=== PATIENT | female | born 1950 | race Caucasian/White ===

== ENCOUNTER → 2020-03-06 06:16 | Outpatient (CLI) | payer MEDICARE, SELFPAY ==
--- NOTE | 2020-03-06 | CA_ITS ---
APPROVED REPORT Exam: Exercise Treadmill Technologist: Madeline Guerrero, Ht: 5 ft 8 in Wt: 156 lbs BSA: 1.84 m2 HR: 79 bpm BP: 145/77 mmHg Rhythm: NSR,FREQUENT PAC'S,OCCASIONAL PVC,ST-T ABNORMALITIES INFERIORLY AND LATERALLY,NS IVCD Medical History Medical History: HTN Medications: FeNOfibrate,,,,, CarTIA,,,,, AtorvaASTATIN,,,,, Cardiac Risk Factors: FHX of CAD, HTN Stress Test Details Test: Eriberto HR Resting HR: 93 bpm Max Heart Rate (APMHR): 149 bpm Max HR Achieved: 136 bpm Target HR (85% APMHR): 126 bpm % of APMHR: 91 BP Resting BP: 145/77 mmHg Max BP: 148/68 mmHg Recovery BP: 114.0/62.0 mmHg ECG Medications Administered Labetalol ( mg at ) Clinical Exercise duration: 05:52 min Highest Stage Achieved: Exercise capacity: 7.0 METs Stress ECG Conclusion PATIENT EXERCISED 5:52 on ERIBERTO PROTOCOL. MAX HEART RATE 136 BPM WHICH IS 91% OF PM FOR AGE. MAX BP 148/68. METS = 7.0. TEST STOPPED DUE TO SOA AND FATIGUE. NO CHEST PAIN. RARE PAC,PVC. EXAGGERATION OF BASELINE ST-T ABNORMALITIES REACHING A MAXIMUM OF ABOUT 1.5MM DOWNSLOPING ST DEPRESSION INFERIORLY AND 1.5MM HORIZONTAL ST DEPRESSION LATERALLY. NON-DIAGNOSTIC GXT DUE TO BASELINE ABNORMALITIES. MYOVIEW IMAGES REPORTED SEPARATELY. Electronically signed by : Jose Guadalupe Veloz, 03/11/2020 12:56:26
--- NOTE | 2020-03-06 06:17 | NM_ITS ---
APPROVED REPORT Exam: Nuclear Stress Test Indication: CAD, SOA, HYPERLIPIDEMIA, PALPITATIONS, FM HX Patient Location: Outpatient Stress Tech: Lucille Guerrero NM Tech:Georgianalayne Valenzuela, ARRT, RT (R)(N) Ht: 5 ft 8 in Wt: 156 lbs Bra Size: 36C HR: 79 bpm BP: 145/77 mmHg BSA: 1.84 m2 BMI: 23.7 History: CAD, SOA, HYPERLIPIDEMIA, PALPITATIONS, FM HX Procedure: Patient exercised on Eriberto protocol 5:52 minutes and sec, resting heart rate 79 bpm, resting blood pressure 145/77 mmHg, with exercise maximum heart rate achived was 107 bpm which is 91 % of the maximum predicted heart rate and blood pressure was 114/62 mmHg. Patient denied any complaint of chest pain. Patient has exercise capacity, achieved 7 METs of workload on treadmill, the blood pressure response to exercise was . Cardiac Stress and Resting SPECT Images: Cardiac Stress and Resting SPECT images were obtained using technetium 99m Myoview 31.3 mCi stress and 10.56 mCi at rest. EF 55% Possible breast attenuation artifact anterior wall with questionable area of ischemia anteroseptal region Conclusion: EF lower limits of normal Possible breast attenuation artifact anterior wall Questionable area of ischemia anteroseptal region Electronically signed by : Jeff Rowe MD 03/08/2020 11:51:13
--- NOTE | 2020-03-06 07:01 | HMH.ITSHM ---
Current Home Medications as stated by this patient Flaca Segura or industrial relations representative. []FENOFIBRATE CARTIA ATORVASTATIN ASA
== END ==
PROVIDERS: PCP Family Medicine; Visit Provider Nurse Practitioner Family
DX: E78.5 Hyperlipidemia, unspecified (principal); I10 Essential (primary) hypertension; I25.10 Atherosclerotic heart disease of native coronary artery without angina pectoris; R00.2 Palpitations; R06.00 Dyspnea, unspecified; R53.83 Other fatigue
CPT/HCPCS: 78452; 93017; 93306; A9502

== ENCOUNTER 2020-03-21 07:52 | Day surgery (SDC) | payer MEDICARE, SELFPAY ==
[2020-03-21] VITALS (11 sets, daily range): BP systolic 89–145; BP diastolic 50–82; PULSE 50–70; RESP 16–20; TEMP 36.3; O2SAT 91–97; BMI 23.6
[2020-03-21 08:24] LABS: Basophils # 0.1 K/mm3 (0-0.2); Basophils % 1.1 % (0.1-2.0); Eosinophils # 0.3 K/mm3 (0.0-0.4); Eosinophils % 3.5 % (0.1-12.0); Hematocrit 41.4 % (37.0-47.0); Hemoglobin 13.9 g/dL (12.2-16.2); Lymphocytes # 4.6 K/mm3 (0.7-4.5); Mean Corpuscular HGB Conc 33.6 g/dL (31.8-35.4); Mean Corpuscular Hemoglobin 31.8 pg (27.0-31.2); Mean Corpuscular Volume 94.8 fl (81-99); Mean Platelet Volume 8.1 fl (7.4-10.4); Monocytes # 0.8 K/mm3 (0.1-1.0); Neutrophils # 3.6 K/mm3 (1.8-7.8); Neutrophils % 38.3 % (37.0-80.0); Platelet Count 373 K/mm3 (142-424); Red Blood Count 4.37 M/mm3 (4.20-5.40); Red Cell Distribution Width 13.6 % (11.5-17.5); White Blood Count 9.4 K/mm3 (4.8-10.8)
[2020-03-21 08:33] LABS: Anion Gap 14.6 mEq/L (5-15); Blood Urea Nitrogen 20 mg/dl (7-17); Calcium 9.5 mg/dl (8.4-10.2); Carbon Dioxide 24 mmol/L (22.0-30.0); Chloride 107 mmol/L (98-107); Creatinine Clearance Estimated 57 mL/min (50-200); Estimated Glomerular Filt Rate 62 ml/min (>60); GFR (African American) 75 ML/MIN (>60); Glucose 104 mg/dl (74-100); Potassium 3.6 mmoL/L (3.5-5.1); Sodium 142 mmol/L (136-145)
--- NOTE | 2020-03-21 13:00 | IR_ITS ---
APPROVED REPORT Patient Location: Outpatient Aluminum Siding Mechanic: EMMA Clark RT (R) PROCEDURES Left heart catheterization Left ventriculogram Selective coronary angiogram INDICATION I risk abnormal Myoview Informed consent was obtained prior to the procedure. COMPLICATIONS None Estimated Blood Loss: less than 10ml TECHNIQUE One percent lidocaine used to anesthetize the right anterior aspect of the wrist. The right radial artery was accessed via the Seldinger technique. A 6 Bangladeshi sheath was placed in the right radial artery. 2.5 mg of verapamil, 800 mcg of nitroglycerin, 1mg Lidocaine and 5000 U Heparin were given through the arterial sheath. The trap catheter was also used to perform left heart catheterization, left ventriculogram and selective coronary angiogram. At the end of the procedure the sheath was removed good hemostasis was achieved using Traclet band, patient was transferred to the postop holding area in stable condition. ANGIOGRAPHIC RESULTS The left main artery Normal The left anterior descending artery Has proximal mild luminal irregularities with remaining vessel normal The circumflex artery Large dominant normal The right coronary artery Small nondominant normal The FRANCOIS ventriculogram reveals Normal 60% The left ventricular end-diastolic pressure 10 mmHg IMPRESSION Nonocclusive coronary artery disease manifested only as mild luminal irregularities of the proximal LAD Normal ejection fraction Normal left ventricular end-diastolic pressure PLAN 1. Medical management Electronically signed by : Jose Guadalupe Veloz, 03/21/2020 09:02:51
== END 2020-03-21 11:49 | disposition home or self-care (01) ==
LOC: CATHLAB 07:54
PROVIDERS: PCP Family Medicine; Visit Provider Internal Medicine
DX: E78.2 Mixed hyperlipidemia (principal); I10 Essential (primary) hypertension; I25.118 Atherosclerotic heart disease of native coronary artery with other forms of angina pectoris; R06.02 Shortness of breath; R53.83 Other fatigue; R93.1 Abnormal findings on diagnostic imaging of heart and coronary circulation; R94.31 Abnormal electrocardiogram [ECG] [EKG]; R94.39 Abnormal result of other cardiovascular function study
CPT/HCPCS: 80048; 85025; 93458; 99152; C1725; C1769; J1644; J2405; Q9967

== ENCOUNTER → 2020-04-02 15:17 | Outpatient (CLI) | payer MEDICARE, SELFPAY ==
[2020-04-02 19:09] LABS: Alanine Aminotransferase 19 U/L (12-78); Albumin Level 4.5 g/dl (3.5-5.0); Alkaline Phosphatase 71 U/L (38-126); Aspartate Amino Transferase 36 U/L (14-36); Bilirubin,Direct 0.2 mg/dl (0.0-0.4); Bilirubin,Indirect 0.2 mg/dL (0.0-0.9); Bilirubin,Total 0.4 mg/dl (0.2-1.3); Bilirubin,Unconjugated 0.2 mg/dL (0.0-1.1); Cholesterol 159 mg/dl (140-200); HDL Cholesterol 53 mg/dl (40-60); Total Protein,Serum 7.7 g/dl (6.3-8.2); Triglycerides 274 mg/dl (30-150); VLDL Cholesterol 55 mg/dL (0-40)
[2020-04-02 19:21] LABS: Direct LDL Cholesterol 67.81 mg/dL (100-129)
== END ==
PROVIDERS: Visit Provider Urology
DX: E78.5 Hyperlipidemia, unspecified (principal); I10 Essential (primary) hypertension; I25.10 Atherosclerotic heart disease of native coronary artery without angina pectoris
CPT/HCPCS: 36415; 80061; 80076

== ENCOUNTER → 2020-06-24 16:28 | Outpatient (CLI) | payer MEDICARE, SELFPAY ==
--- NOTE | 2020-06-24 16:36 | XR_ITS ---
PROCEDURE: XR CERVICAL SPINE 2V CLINICAL INDICATION: fall Posttraumatic pain COMPARISON: No exams were available for comparison FINDINGS: Normal alignment. No fracture or dislocation. Degenerative disc disease C5-C6 and C6-C7. There is 2 mm anterolisthesis C7 on T1 which may be degenerative in nature. Other findings:None. IMPRESSION: Degenerative changes, no acute finding Dictated by: Jeff Rowe MD 06/24/2020 19:43 Jeff Rowe MD in [place] 06/24/2020 19:43
--- NOTE | 2020-06-24 16:36 | XR_ITS ---
PROCEDURE: XR LUMBAR SPINE 2-3V CLINICAL INDICATION: pain COMPARISON: No exams were available for comparison FINDINGS: No fracture or dislocation. No lytic or blastic change. There is normal mineralization. There is mild lumbar curvature convex left. Degenerative disc disease is present from L1-S1 mild in nature. There is straightening of the lumbar lordosis which could be due to patient positioning or muscle spasm. On the lateral view there is an oval ring-like density overlying the pedicle of L1 possibly due to an overlying foreign body or vascular calcification. Other findings:None. IMPRESSION: Degenerative changes, no acute finding Dictated by: Jeff Rowe MD 06/24/2020 19:42 Jeff Rowe MD in OV 06/24/2020 19:42
--- NOTE | 2020-06-24 16:43 | XR_ITS ---
PROCEDURE: XR HIP RT 2-3V W/PELVIS CLINICAL INDICATION: PAIN COMPARISON: No exams were available for comparison FINDINGS: No fracture or dislocation is evident. No significant degenerative change. No lytic or blastic change. Unremarkable soft tissues. IMPRESSION: No acute findings. Dictated by: Jeff Rowe MD 06/24/2020 19:40 Jeff Rowe MD in OV 06/24/2020 19:40
--- NOTE | 2020-06-24 16:44 | XR_ITS ---
PROCEDURE: XR HIP LT 2-3V W/PELVIS CLINICAL INDICATION: PAIN COMPARISON: No exams were available for comparison FINDINGS: No fracture or dislocation is evident. No significant degenerative change. No lytic or blastic change. Unremarkable soft tissues. IMPRESSION: No acute findings. Dictated by: Jeff Rowe MD 06/24/2020 19:40 Jeff Rowe MD in OV 06/24/2020 19:40
== END ==
PROVIDERS: PCP Family Medicine; Visit Provider Family Medicine
DX: W19.XXXA Unspecified fall, initial encounter (principal); M54.41 Lumbago with sciatica, right side
CPT/HCPCS: 72040; 72100; 73502

== ENCOUNTER → 2021-01-14 13:38 | Outpatient (CLI) | payer MEDICARE, SELFPAY ==
[2021-01-14 13:56] LABS: Basophils # 0.1 K/mm3 (0-0.2); Basophils % 1.5 % (0.1-2.0); Eosinophils # 0.1 K/mm3 (0.0-0.4); Eosinophils % 1.2 % (0.1-12.0); Hematocrit 41.5 % (37.0-47.0); Hemoglobin 13.4 g/dL (12.2-16.2); Lymphocytes # 3.1 K/mm3 (0.7-4.5); Lymphocytes % 38.7 % (10-50); Mean Corpuscular HGB Conc 32.3 g/dL (31.8-35.4); Mean Corpuscular Hemoglobin 30.6 pg (27.0-31.2); Mean Corpuscular Volume 94.7 fl (81-99); Mean Platelet Volume 8.5 fl (7.4-10.4); Monocytes # 0.8 K/mm3 (0.1-1.0); Monocytes % 9.4 % (1.7-9.3); Neutrophils % 49.2 % (37.0-80.0); Platelet Count 435 K/mm3 (142-424); Red Blood Count 4.38 M/mm3 (4.20-5.40); Red Cell Distribution Width 13.9 % (11.5-17.5); White Blood Count 8.1 K/mm3 (4.8-10.8)
[2021-01-14 14:00] LABS: Alanine Aminotransferase 20 U/L (12-78); Albumin Level 4.6 g/dl (3.5-5.0); Albumin/Globulin Ratio 1.5 (1.1-1.8); Alkaline Phosphatase 61 U/L (38-126); Anion Gap 11.5 mEq/L (5-15); Aspartate Amino Transferase 33 U/L (14-36); Bilirubin,Total 0.5 mg/dl (0.2-1.3); Blood Urea Nitrogen 20 mg/dl (7-17); Calcium 9.8 mg/dl (8.4-10.2); Carbon Dioxide 24 mmol/L (22.0-30.0); Chloride 109 mmol/L (98-107); Estimated Glomerular Filt Rate 55 ml/min (>60); GFR (African American) 66 ML/MIN (>60); Glucose 101 mg/dl (74-100); Potassium 4.5 mmoL/L (3.5-5.1); Sodium 140 mmol/L (136-145); Total Protein,Serum 7.6 g/dl (6.3-8.2)
[2021-01-14 14:18] LABS: 25-OH Vitamin D, Total 23.7 ng/mL (30-100)
[2021-01-14 14:33] LABS: Thyroid Stimulating Hormone 1.59 uIU/mL (0.465-4.68)
[2021-01-14 14:51] LABS: Vitamin B12 332 pg/mL (239-931)
== END ==
PROVIDERS: Visit Provider Family Medicine
DX: R06.00 Dyspnea, unspecified (principal); R53.83 Other fatigue; E55.9 Vitamin D deficiency, unspecified
CPT/HCPCS: 80053; 82306; 82607; 84436; 84443; 85025

== ENCOUNTER → 2021-04-02 14:31 | Outpatient (CLI) | payer MEDICARE, SELFPAY ==
[2021-04-02 14:54] LABS: Basophils # 0.1 K/mm3 (0-0.2); Eosinophils # 0.2 K/mm3 (0.0-0.4); Eosinophils % 1.5 % (0.1-12.0); Hemoglobin 13.3 g/dL (12.2-16.2); Lymphocytes % 26.6 % (10-50); Mean Corpuscular HGB Conc 33.4 g/dL (31.8-35.4); Mean Corpuscular Hemoglobin 30.4 pg (27.0-31.2); Mean Platelet Volume 7.8 fl (7.4-10.4); Monocytes # 0.8 K/mm3 (0.1-1.0); Monocytes % 7.4 % (1.7-9.3); Neutrophils # 7.1 K/mm3 (1.8-7.8); Neutrophils % 63.5 % (37.0-80.0); Platelet Count 393 K/mm3 (142-424); Red Blood Count 4.39 M/mm3 (4.20-5.40); Red Cell Distribution Width 13.5 % (11.5-17.5); White Blood Count 11.2 K/mm3 (4.8-10.8)
[2021-04-02 15:14] LABS: Alanine Aminotransferase 22 U/L (12-78); Albumin Level 4.5 g/dl (3.5-5.0); Alkaline Phosphatase 64 U/L (38-126); Aspartate Amino Transferase 37 U/L (14-36); Bilirubin,Direct 0.6 mg/dl (0.0-0.4); Bilirubin,Indirect 0.1 mg/dL (0.0-0.9); Bilirubin,Total 0.7 mg/dl (0.2-1.3); Bilirubin,Unconjugated 0.1 mg/dL (0.0-1.1); Blood Urea Nitrogen 20 mg/dl (7-17); Calcium 9.3 mg/dl (8.4-10.2); Carbon Dioxide 22 mmol/L (22.0-30.0); Chloride 106 mmol/L (98-107); Chol/HDL Ratio 3.2 (1-3.5); Cholesterol 152 mg/dl (140-200); Estimated Glomerular Filt Rate 62 ml/min (>60); GFR (African American) 74 ML/MIN (>60); Glucose 93 mg/dl (74-100); HDL Cholesterol 48 mg/dl (40-60); Sodium 137 mmol/L (136-145); Total Protein,Serum 7.6 g/dl (6.3-8.2); Triglycerides 150 mg/dl (30-150); VLDL Cholesterol 30 mg/dL (0-40)
[2021-04-02 15:25] LABS: Direct LDL Cholesterol 68.05 mg/dL (100-129)
== END ==
PROVIDERS: Visit Provider Physician Assistant
DX: E78.2 Mixed hyperlipidemia (principal); I10 Essential (primary) hypertension; I25.10 Atherosclerotic heart disease of native coronary artery without angina pectoris
CPT/HCPCS: 36415; 80048; 80061; 80076; 83735; 85025

== ENCOUNTER → 2021-07-08 18:22 | Outpatient (CLI) | payer MEDICARE, SELFPAY | PROVIDERS: Visit Provider Family Medicine | DX: Z20.822 Contact with and (suspected) exposure to COVID-19 (principal) | CPT/HCPCS: C9803; U0003; U0005 ==

== ENCOUNTER → 2022-01-05 18:10 | Outpatient (CLI) | payer MEDICARE, SELFPAY | PROVIDERS: Visit Provider Family Medicine | DX: N39.0 Urinary tract infection, site not specified (principal); B96.20 Unspecified Escherichia coli [E. coli] as the cause of diseases classified elsewhere | CPT/HCPCS: 87086; 87186 ==

== ENCOUNTER → 2022-06-15 14:14 | Outpatient (CLI) | payer MEDICARE, SELFPAY | PROVIDERS: PCP Student in an Organized Health Care Education/Training Program; Visit Provider Student in an Organized Health Care Education/Training Program | DX: R82.90 Unspecified abnormal findings in urine (principal); B96.89 Other specified bacterial agents as the cause of diseases classified elsewhere | CPT/HCPCS: 87086; 87088; 87186 ==

== ENCOUNTER → 2022-10-16 14:37 | Outpatient (CLI) | payer MEDICARE, SELFPAY ==
[2022-10-16 15:05] LABS: Basophils # 0.1 K/mm3 (0-0.2); Basophils % 1.3 % (0.1-2.0); Eosinophils # 0.2 K/mm3 (0.0-0.4); Eosinophils % 2.3 % (0.1-12.0); Hematocrit 43.4 % (37.0-47.0); Hemoglobin 13.9 g/dL (12.2-16.2); Lymphocytes # 3.2 K/mm3 (0.7-4.5); Mean Corpuscular Hemoglobin 29.6 pg (27.0-31.2); Mean Corpuscular Volume 92.4 fl (81-99); Monocytes # 0.7 K/mm3 (0.1-1.0); Monocytes % 9.8 % (1.7-9.3); Neutrophils # 3.3 K/mm3 (1.8-7.8); Neutrophils % 43.5 % (37.0-80.0); Platelet Count 512 K/mm3 (142-424); Red Cell Distribution Width 13.3 % (11.5-17.5); White Blood Count 7.5 K/mm3 (4.8-10.8)
[2022-10-16 16:16] LABS: Alanine Aminotransferase 23 U/L (12-78); Albumin Level 4.6 g/dl (3.5-5.0); Albumin/Globulin Ratio 1.5 (1.1-1.8); Alkaline Phosphatase 60 U/L (38-126); Anion Gap 12.4 mEq/L (5-15); Aspartate Amino Transferase 38 U/L (14-36); Bilirubin,Total 0.5 mg/dl (0.2-1.3); Blood Urea Nitrogen 22 mg/dl (7-17); Calcium 9.2 mg/dl (8.4-10.2); Carbon Dioxide 24 mmol/L (22.0-30.0); Chloride 107 mmol/L (98-107); Chol/HDL Ratio 3.3 (1-3.5); Cholesterol 150 mg/dl (140-200); Estimated Glomerular Filt Rate 61 ml/min (>60); GFR (African American) 74 ML/MIN (>60); Globulin 3.1 g/dL (1.3-3.2); Glucose 118 mg/dl (74-100); HDL Cholesterol 45 mg/dl (40-60); Potassium 4.4 mmoL/L (3.5-5.1); Sodium 139 mmol/L (136-145); Total Protein,Serum 7.7 g/dl (6.3-8.2); Triglycerides 165 mg/dl (30-150); VLDL Cholesterol 33 mg/dL (0-40)
[2022-10-16 16:28] LABS: Direct LDL Cholesterol 72.21 mg/dL (100-129)
[2022-10-16 16:47] LABS: Thyroid Stimulating Hormone 3.06 uIU/mL (0.465-4.68)
== END ==
PROVIDERS: PCP Family Medicine; Visit Provider Family Medicine
DX: Z00.00 Encounter for general adult medical examination without abnormal findings (principal); I25.10 Atherosclerotic heart disease of native coronary artery without angina pectoris; I10 Essential (primary) hypertension; N39.0 Urinary tract infection, site not specified; B96.29 Other Escherichia coli [E. coli] as the cause of diseases classified elsewhere
CPT/HCPCS: 80053; 80061; 84443; 85025; 87086; 87088; 87186

== ENCOUNTER → 2023-03-19 11:00 | Outpatient (CLI) | payer MEDICARE, SELFPAY | PROVIDERS: PCP Family Medicine; Visit Provider Family Medicine | DX: R35.0 Frequency of micturition (principal); B96.1 Klebsiella pneumoniae [K. pneumoniae] as the cause of diseases classified elsewhere | CPT/HCPCS: 87086; 87088; 87186 ==

== ENCOUNTER → 2023-05-12 08:04 | Outpatient (CLI) | payer MEDICARE, SELFPAY ==
--- NOTE | 2023-05-12 08:06 | CA_ITS ---
APPROVED REPORT EXAM: Comprehensive 2D, Doppler, and color-flow Echocardiogram Music Critic: Marta Nichols, RCS, RVS Ht: 5 ft 6 in Wt: 151lbs BSA: 1.77 BP: 121/74 mmHg Indications: SOA, MURMURS, CAD, HTN, HLD 2D Dimensions LVDd 5.10 cm LVEF (Visual) 50.20 % LVDs 3.79 cm LA Volume 69.50 mL Aortic Root 3.49 cm LA Volume Index 38.20 mL/m2 (M/F) 16-34 Left Atrium 4.06 cm LVOT 2.20 cm (M/F) 1.5-2.5 M-Mode Dimensions RVDd 2.50 cm (0.9-2.6) LA Diam 4.12 cm (1.9-4.0) LVDd 5.10 cm (3.5-5.7) Ao Diam 3.62 cm (2.0-3.7) LVDs 3.80 cm (3.5-5.7) IVSd 1.02 cm (0.6-1.1) PWd 0.68 cm (0.6-1.1) EF (Teich) 58.50% EPSs 0.88 cm FS 31.40% EDV (Teich) 174.60 mL TAPSE 2.83 (<1.7) ESV (Teich) 72.50 mL LV Diastology E Decel Time 287.00 (160-240 msec) E/A Ratio 0.51 MED E' 5.30 (< 7 cm/sec) MED A' 11.10 cm/s E'/MED E' Ratio 10.38 (>14) LAT E' 6.80 (<10 cm/sec) LAT A' 11.00 cm/s E/LAT E' Ratio 8.09 (>14) Aortic Valve LVOT Max 85.00 (70-110 cm/s) LVOT VTI 18.73 cm AoV Peak Pérez. 131.00 (50-130 cm/s) AI PHT 563.00 ms AO Peak GR. 6.90 mmHg AO Mean GR. 3.40 (<5 mmHg) AO VTI 28.11 (18-25 cm) EMMA (VTI) 2.53 (2.5-4.5 cm2) Mitral Valve MV A Velocity 109.00 (40-130 cm/s) E/A Ratio 0.51 MV Decel. Time 287.00 (160-240 ms) MV Mean Gr. 1.40 (<2mmHg) MV PHT 48.00 ms Pulmonary Valve PV Peak Velocity 63.00 (50-150 cm/s) Tricuspid Valve TR P. Velocity 263.00 cm/s RAP Estimate 10.00 mmHg RVSP 37.60 mmHg Left Ventricle The left ventricle is normal size. The left ventricular systolic function is normal. The left ventricular ejection fraction is within the normal range. There is normal left ventricular wall thickness. There is normal LV segmental wall motion. The left ventricular diastolic function is normal. LVEF is 55%. Right Ventricle The right ventricle is normal size. The right ventricular systolic function is normal. Atria The left atrium size is normal. The right atrium size is normal. There is no Doppler evidence of interatrial shunt. Aortic Valve The aortic valve is normal in structure. There is no aortic valvular stenosis. Trace aortic regurgitation. Mitral Valve The mitral valve is normal in structure. No evidence of mitral valve stenosis. Mild mitral regurgitation. Tricuspid Valve The tricuspid valve leaflets are thin and pliable. Mild tricuspid regurgitation. RVSP is 27 mmHg + RA pressure. Pulmonic Valve The pulmonary valve is normal in structure. Mild pulmonic regurgitation. Great Vessels The aortic root is normal in size. The ascending aorta is borderline dilated. The ascending aorta measures 3.7 cm. The IVC is not well visualized. Pericardium There is no pericardial effusion. Other Information Study Quality: Fair Conclusion Normal biventricular systolic function. No significant valvular disease. Mild MR, Mild TR, Mild WI Trace AI Borderline dilated ascending aorta 3.7 cm. Electronically signed by : Kristen Paredes, 05/17/2023 17:20:34
== END ==
PROVIDERS: PCP Family Medicine; Visit Provider Internal Medicine
DX: E78.5 Hyperlipidemia, unspecified (principal); I10 Essential (primary) hypertension; I25.10 Atherosclerotic heart disease of native coronary artery without angina pectoris; R00.2 Palpitations
CPT/HCPCS: 93306

== ENCOUNTER → 2023-08-17 11:08 | Outpatient (POV) | payer MEDICARE, SELFPAY | PROVIDERS: PCP Family Medicine; Visit Provider Dermatology | DX: Z00.00 Encounter for general adult medical examination without abnormal findings (principal) ==

== ENCOUNTER → 2023-08-18 07:32 | Outpatient (CLI) | payer MEDICARE, SELFPAY | PROVIDERS: PCP Nurse Practitioner; Visit Provider Nurse Practitioner | DX: N39.0 Urinary tract infection, site not specified (principal) | CPT/HCPCS: 87086 ==

== ENCOUNTER 2023-11-09 11:28 | Outpatient (CLI) | payer MEDICARE, SELFPAY ==
[2023-11-09 11:52] LABS: Basophils # 0.2 K/mm3 (0-0.2); Basophils % 1.3 % (0.1-2.0); Eosinophils # 0.3 K/mm3 (0.0-0.4); Eosinophils % 2.5 % (0.1-12.0); Hematocrit 44.5 % (37.0-47.0); Hemoglobin 14.3 g/dL (12.2-16.2); Lymphocytes # 4.6 K/mm3 (0.7-4.5); Lymphocytes % 35.9 % (10-50); Mean Corpuscular HGB Conc 32.1 g/dL (31.8-35.4); Mean Corpuscular Hemoglobin 30.6 pg (27.0-31.2); Mean Corpuscular Volume 95.4 fl (81-99); Mean Platelet Volume 7.8 fl (7.4-10.4); Monocytes % 7.8 % (1.7-9.3); Neutrophils # 6.7 K/mm3 (1.8-7.8); Neutrophils % 52.6 % (37.0-80.0); Platelet Count 483 K/mm3 (142-424); Red Blood Count 4.66 M/mm3 (4.20-5.40); White Blood Count 12.8 K/mm3 (4.8-10.8)
[2023-11-09 12:26] LABS: Alanine Aminotransferase 25 U/L (12-78); Albumin Level 4.3 g/dl (3.5-5.0); Alkaline Phosphatase 66 U/L (38-126); Anion Gap 13.4 mEq/L (5-15); Aspartate Amino Transferase 33 U/L (14-36); Bilirubin,Direct 0.2 mg/dl (0.0-0.4); Bilirubin,Indirect 0.3 mg/dL (0.0-0.9); Bilirubin,Total 0.5 mg/dl (0.2-1.3); Bilirubin,Unconjugated 0.4 mg/dL (0.0-1.1); Blood Urea Nitrogen 21 mg/dl (7-17); Calcium 9.5 mg/dl (8.4-10.2); Carbon Dioxide 26 mmol/L (22.0-30.0); Chloride 104 mmol/L (98-107); Chol/HDL Ratio 3.7 (1-3.5); Cholesterol 155 mg/dl (140-200); Estimated Glomerular Filt Rate 61 ml/min (>60); GFR (African American) 74 ML/MIN (>60); Glucose 89 mg/dl (74-100); HDL Cholesterol 42 mg/dl (40-60); Magnesium 2.2 mg/dl (1.6-2.3); Potassium 4.4 mmoL/L (3.5-5.1); Sodium 139 mmol/L (136-145); Total Protein,Serum 7.3 g/dl (6.3-8.2); Triglycerides 211 mg/dl (30-150); VLDL Cholesterol 42 mg/dL (0-40)
[2023-11-09 12:37] LABS: Direct LDL Cholesterol 69.36 mg/dL (100-129)
[2023-11-09 12:45] LABS: Free T4 (Free Thyroxine) 1.26 ng/dl (0.78-2.19)
[2023-11-09 12:57] LABS: Thyroid Stimulating Hormone 2.03 uIU/mL (0.465-4.68)
== END 2023-11-09 23:59 ==
LOC: LAB 11:29
PROVIDERS: PCP Family Medicine; Visit Provider Nurse Practitioner
DX: E78.5 Hyperlipidemia, unspecified (principal); I10 Essential (primary) hypertension; I25.10 Atherosclerotic heart disease of native coronary artery without angina pectoris; I77.810 Thoracic aortic ectasia; R00.2 Palpitations; Z79.899 Other long term (current) drug therapy
CPT/HCPCS: 36415; 80048; 80061; 80076; 83735; 84439; 84443; 85025

== ENCOUNTER 2024-10-24 09:31 | Outpatient (CLI) | payer MEDICARE, SELFPAY ==
--- NOTE | 2024-10-24 09:37 | CA_ITS ---
FINAL REPORT CLINICAL HISTORY: Right leg pain previous SVT 10 years ago. FINDINGS: DUPLEX VENOUS SONOGRAPHY OF THE RIGHT LOWER EXTREMITY Multiple transverse and longitudinal scans were performed of the femoropopliteal deep venous system, with augmentation and compression maneuvers. Normal phasic flow was noted in the visualized deep venous system. No intraluminal increased echogenicity is noted to suggest thrombus. There is normal compression and augmentation of the venous structures. No abnormal venous collaterals are seen. There is thrombus within the greater saphenous vein consistent with superficial thrombophlebitis. IMPRESSION: No evidence of deep venous thrombosis of the right lower extremity. Superficial thrombophlebitis of the greater saphenous vein. Reviewed, Interpreted and Dictated by Tarah Escamilla MD Transcribed by Heather Malone Authenticated and [facility]
[2024-10-24 10:26] LABS: Basophils # 0.1 K/mm3 (0-0.2); Basophils % 0.6 % (0.1-2.0); Eosinophils # 0.1 K/mm3 (0.0-0.4); Eosinophils % 1.1 % (0.1-12.0); Hematocrit 42.8 % (37.0-47.0); Hemoglobin 14.1 g/dL (12.2-16.2); Lymphocytes # 3.5 K/mm3 (0.7-4.5); Lymphocytes % 33.7 % (10-50); Mean Corpuscular HGB Conc 32.9 g/dL (31.8-35.4); Mean Corpuscular Volume 91.1 fl (81-99); Mean Platelet Volume 9.5 fl (7.4-10.4); Monocytes # 1.3 K/mm3 (0.1-1.0); Monocytes % 12.1 % (1.7-9.3); Neutrophils # 5.4 K/mm3 (1.8-7.8); Neutrophils % 52.1 % (37.0-80.0); Platelet Count 460 K/mm3 (142-424); Red Cell Distribution Width 14.7 % (11.5-17.5); White Blood Count 10.4 K/mm3 (4.8-10.8)
--- NOTE | 2024-10-24 10:28 | CT_ITS ---
FINAL REPORT TECHNIQUE: Axial imaging of the chest is obtained after the administration of contrast. 3-D MIP reformatted images were also obtained and reviewed per PE protocol. CLINICAL HISTORY: soa and Rt Lower extremity clot FINDINGS: There is a filling defect in the segmental branch of the right lower lobe pulmonary artery which extends into several subsegmental branches. There is no central pulmonary embolism. There is no evidence of right heart strain. There is no aortic dissection. There is no mediastinal, hilar, or axillary lymphadenopathy. There is biapical pleural thickening and scar. There is no pleural or pericardial effusion. There is either left hydronephrosis or parapelvic left renal cyst. No acute osseous abnormality. IMPRESSION: Right lower lobe pulmonary emboli. No central pulmonary embolism or right heart strain. Left hydronephrosis versus parapelvic left renal cyst. Findings were reported to ordering physician on 08/23/2025 at 12:26 PM Reviewed, Interpreted and Dictated by Tarah Escamilla MD Transcribed by Heather Malone Authenticated and [facility]
[2024-10-24 10:55] LABS: Albumin Level 4.6 g/dl (3.5-5.0); Chloride 106 mmol/L (98-107)
[2024-10-24 10:56] LABS: Potassium 4.4 mmoL/L (3.5-5.1); Sodium 140 mmol/L (136-145)
[2024-10-24 10:58] LABS: Alanine Aminotransferase 26 U/L (12-78); Anion Gap 13.4 mEq/L (5-15); Aspartate Amino Transferase 37 U/L (14-36); Bilirubin,Unconjugated 0.4 mg/dL (0.0-1.1); Blood Urea Nitrogen 19 mg/dl (7-17); Carbon Dioxide 25 mmol/L (22.0-30.0); Estimated Glomerular Filt Rate 70 ml/min (>60); GFR (African American) 84 ML/MIN (>60); Total Protein,Serum 7.6 g/dl (6.3-8.2)
[2024-10-24 10:59] LABS: Alkaline Phosphatase 68 U/L (38-126); Bilirubin,Direct 0.1 mg/dl (0.0-0.4); Bilirubin,Indirect 0.4 mg/dL (0.0-0.9); Bilirubin,Total 0.5 mg/dl (0.2-1.3); Calcium 9.7 mg/dl (8.4-10.2); Chol/HDL Ratio 2.9 (1-3.5); Cholesterol 154 mg/dl (140-200); Glucose 94 mg/dl (74-100); HDL Cholesterol 53 mg/dl (40-60); Magnesium 1.9 mg/dl (1.6-2.3); Triglycerides 148 mg/dl (30-150); VLDL Cholesterol 30 mg/dL (0-40)
[2024-10-24 11:11] LABS: Direct LDL Cholesterol 64.38 mg/dL (100-129)
[2024-10-24 11:17] LABS: Free T4 (Free Thyroxine) 1.16 ng/dl (0.78-2.19)
[2024-10-24] MEDS: 0.9 % SODIUM CHLORIDE 50 ML VIAL IV (11:17)
[2024-10-24] MEDS: IOPAMIDOL-370 (76%);100ML BOTTLE 85 ML IV (11:18)
[2024-10-24] MEDS: SODIUM CHLORIDE 0.9% 10ML SYR (RAD ONLY) 10 ML IV (11:18)
[2024-10-24 11:31] LABS: Thyroid Stimulating Hormone 2.38 uIU/mL (0.465-4.68)
== END 2024-10-24 23:59 | disposition home or self-care (01) ==
PROVIDERS: PCP Family Medicine; Visit Provider Nurse Practitioner
DX: M79.604 Pain in right leg (principal); M79.89 Other specified soft tissue disorders; R00.2 Palpitations; E78.2 Mixed hyperlipidemia; I10 Essential (primary) hypertension; I25.10 Atherosclerotic heart disease of native coronary artery without angina pectoris; I77.810 Thoracic aortic ectasia; Z86.718 Personal history of other venous thrombosis and embolism
CPT/HCPCS: 36415; 71275; 80048; 80061; 80076; 83735; 84439; 84443; 85025; 93225; 93227; 93971; Q9967

== ENCOUNTER 2024-10-27 12:29 | Outpatient (CLI) | payer MEDICARE, SELFPAY | END 2024-10-27 23:59 | disposition home or self-care (01) | LOC: RT 12:30 | PROVIDERS: PCP Family Medicine; Visit Provider Nurse Practitioner | DX: R00.2 Palpitations (principal); E78.2 Mixed hyperlipidemia; I10 Essential (primary) hypertension; I25.10 Atherosclerotic heart disease of native coronary artery without angina pectoris; I77.810 Thoracic aortic ectasia | CPT/HCPCS: 93270 ==

== ENCOUNTER 2024-11-07 07:26 | Outpatient (CLI) | payer MEDICARE, SELFPAY ==
--- NOTE | 2024-11-07 | CA_ITS ---
APPROVED REPORT Exam: Pharmacologic Technologist: Emma London Ht: 5 ft 6 in Wt: 147 lbs BSA: 1.75 m2 Stress Test Details Test: Lexiscan Reason for pharmacologic stress test: physical limitation. HR Resting HR: 67 bpm Max Heart Rate (APMHR): 144.149770 bpm Max HR Achieved: 106 bpm Target HR (85% APMHR): 122.391686 bpm % of APMHR: 73.61 Recovery HR: 106 bpm BP Resting BP: 140.0/79.0 mmHg Max BP: 150.0/72.0 mmHg Recovery BP: 150.0/72.0 mmHg ECG Stress ECG Conclusion Symptoms: None. Arrhythmias/Ectopy: PVCs noted after Lexiscan infusion, run of ventricular bigeminy. PACs noted. Ventricular couplets in recovery. ST-T Changes: Unremarkable with Lexiscan. Electronically signed by : Kristen Paredes MD 11/07/2024 14:25:05
--- NOTE | 2024-11-07 07:26 | NM_ITS ---
APPROVED REPORT Exam: Nuclear Stress Test Indication: SOB, Palpitations, HTN, High cholesterol, Family history, CAD Patient Location: Outpatient Stress Tech: Emma Sanchez ND Tech:Georgiana Valenzuela, ARRT, RT (R)(N) Ht: 5 ft 8 in Wt: 150 lbs Bra Size: 38B HR: 65 bpm BP: 140/79 mmHg BSA: 1.81 m2 TID: 1.09 BMI: 22.8 History: SOB, Palpitations, HTN, High cholesterol, Family history, CAD Procedure: Patient received 0.4 mg of intravenous Lexiscan, resting heart rate 65 bpm, resting blood pressure 140/79 mmHg, with Lexiscan maximum heart rate achieved was 108 bpm which is % of the maximum predicted heart rate and blood pressure was 150/72 mmHg. With Lexiscan, patient denied any complaint of chest pain. Cardiac Stress and Resting SPECT Images: Cardiac Stress and Resting SPECT images were obtained using technetium 99m Myoview 30.9 mCi stress and 10.86 mCi at rest. Resting and stress imaging in supine and prone positions demonstrate no evidence of fixed or reversible perfusion defects. Gated imaging demonstrates normal global and regional LV systolic function. LVEF is calculated at 53%. Conclusion: No evidence of fixed or reversible perfusion defects. Gated imaging demonstrates normal global and regional LV systolic function. LVEF is calculated at 53%. Electronically signed by : Kristen Paredes MD 11/07/2024 14:24:36
--- NOTE | 2024-11-07 07:26 | CA_ITS ---
APPROVED REPORT EXAM: Comprehensive 2D, Doppler, and color-flow Echocardiogram Insurance Agency Owner: Mirta Duffy CRT Ht: 5 ft 6 in Wt: 147lbs BSA: 1.75 BP: 152/73 mmHg Indications: Chest Pain, Shortness of Breath, Palpitations, CAD, Hyperlipidemia, Hypertension/HDD, STENTD, HX PE 2D Dimensions LA Volume 33.80 mL LA Volume Index 18.80 mL/m2 (M/F) 16-34 M-Mode Dimensions RVDd 2.26 cm (0.9-2.6) LA Diam 4.23 cm (1.9-4.0) LVDd 6.33 cm (3.5-5.7) LVDs 3.93 cm (3.5-5.7) IVSd 0.95 cm (0.6-1.1) PWd 0.59 cm (0.6-1.1) EF (Teich) 67.00% FS 37.90% EDV (Teich) 203.40 mL TAPSE 2.87 (<1.7) ESV (Teich) 67.10 mL LV Diastology E Decel Time 320 (160-240 msec) E/A Ratio 0.42 MED A' 13.60 cm/s LAT A' 10.00 cm/s Aortic Valve AO Peak GR. 4.60 mmHg Mitral Valve MV E Max Pérez. 35.0 (40-130 cm/s) MV A Velocity 84.0 (40-130 cm/s) E/A Ratio 0.42 MV PHT 94.0 ms Pulmonary Valve PV Peak Velocity 110.0 (50-150 cm/s) Tricuspid Valve TR P. Velocity 261.00 cm/s RAP Estimate 10.00 mmHg RVSP 37.30 mmHg Left Ventricle The left ventricle is normal size. The left ventricular systolic function is normal. The left ventricular ejection fraction is within the normal range. There is increased LV wall thickness. There is normal LV segmental wall motion. Transmitral Doppler flow pattern suggests impaired LV relaxation. LVEF is 55%. Right Ventricle The right ventricle is normal size. The right ventricular systolic function is normal. Atria Left atrium is mildly dilated. Right atrium is mildly dilated. There is no Doppler evidence of interatrial shunt. Aortic Valve Aortic valve is mildly thickened. There is no aortic valvular stenosis. No aortic regurgitation is present. Mitral Valve The mitral valve is normal in structure. No evidence of mitral valve stenosis. Mild mitral regurgitation. Tricuspid Valve Tricuspid valve is grossly normal in structure and function. Mild tricuspid regurgitation. RVSP is 25-30 mmHg. Pulmonic Valve The pulmonary valve is normal in structure. Trace pulmonic regurgitation. Great Vessels The aortic root is normal in size. IVC is normal in size and collapses >50% with inspiration. Pericardium There is no pericardial effusion. Other Information Study Quality: Fair Conclusion Normal biventricular systolic function. Mild biatrial dilation. Mild MR, mild TR. Electronically signed by : Kristen Paredes MD 11/14/2024 10:56:50
[2024-11-07] MEDS: SODIUM CHLORIDE 0.9% 10ML SYR (RAD ONLY) 10 ML IV ×2 (10:00)
[2024-11-07] MEDS: ISOTOPE MYOVIEW (PER STUDY) 1 DOSE IV (10:00)
[2024-11-07] MEDS: REGADENOSON 0.4MG/5ML SYRINGE 0.4 MG IV (10:00)
== END 2024-11-07 23:59 | disposition home or self-care (01) ==
LOC: RAD 07:26
PROVIDERS: PCP Family Medicine; Visit Provider Nurse Practitioner
DX: I51.7 Cardiomegaly (principal); I34.0 Nonrheumatic mitral (valve) insufficiency; I36.1 Nonrheumatic tricuspid (valve) insufficiency; R00.2 Palpitations; R07.9 Chest pain, unspecified; I25.10 Atherosclerotic heart disease of native coronary artery without angina pectoris; I77.810 Thoracic aortic ectasia; E78.2 Mixed hyperlipidemia
CPT/HCPCS: 78452; 93017; 93018; 93306; A9502; J2785